=== PATIENT | female | born 1950 | race Caucasian/White ===

== ENCOUNTER 2021-07-16 09:10 | Outpatient (CLI) | payer MEDICARE | END 2021-07-16 09:11 | disposition home or self-care (01) | LOC: BICULT 09:10 | PROVIDERS: ATTEND Internal Medicine Gastroenterology | DX: B18.2 Chronic viral hepatitis C (principal); R94.5 Abnormal results of liver function studies | CPT/HCPCS: 76705 ==

== ENCOUNTER 2022-05-06 11:04 | Outpatient (CLI) | payer MEDICARE | END 2022-05-06 11:05 | disposition home or self-care (01) | LOC: BICCT 11:04 | PROVIDERS: ATTEND Family Medicine | DX: Z12.2 Encounter for screening for malignant neoplasm of respiratory organs (principal); F17.210 Nicotine dependence, cigarettes, uncomplicated | CPT/HCPCS: 71271 ==

== ENCOUNTER 2024-06-19 13:42 | Outpatient (CLI) | payer MEDICARE | END 2024-06-19 13:43 | disposition home or self-care (01) | LOC: BICMAMMO 13:42 | PROVIDERS: ATTEND Family Medicine | DX: M81.0 Age-related osteoporosis without current pathological fracture (principal); M85.88 Other specified disorders of bone density and structure, other site | CPT/HCPCS: 77080 ==